=== PATIENT | female | born 1970 | race Hispanic/Latino ===

== ENCOUNTER 2019-01-06 11:55 | Inpatient (IN) | payer SELFPAY ==
[2019-01-06] MEDS ORDERED: Acetaminophen 500 MG TAB ONE (12:05)
[2019-01-06] MEDS ORDERED: Ondansetron ODT 4 MG TAB ONE (12:05)
[2019-01-06 12:41] LABS: Hemoglobin 12.6 g/dL (12.0-16.0); Mean Corpuscular HGB CONC 35.7 g/dL (32.0-36.0); Mean Corpuscular Hemoglobin 31.1 pg (27.0-31.0); Mean Corpuscular Volume 87.3 fL (78.0-98.0); Mean Platelet Volume 6.9 fL (7.4-10.4); Platelet Count 315 thou/uL (130-400); RBC Distribution Width 11.1 % (11.5-14.5); Red Blood Cell (RBC) Count 4.03 mill/uL (4.20-5.40); White Blood Cell (WBC) Count 17.4 thou/uL (4.8-10.8)
[2019-01-06 12:58] LABS: ALT (SGPT) 15 U/L (8-55); AST (SGOT) 14 U/L (5-34); Albumin 4.3 g/dL (3.5-5.0); Alkaline Phosphatase 96 U/L (40-150); Anion Gap 12 mmol/L (10-20); BUN (Urea Nitrogen) 16 mg/dL (7.0-18.7); Bilirubin, Total 3.2 mg/dL (0.2-1.2); Calc. Creatinine Clearance 0 mL/min (70-130); Calcium 9.4 mg/dL (7.8-10.44); Carbon Dioxide 26 mmol/L (22-29); Chloride 100 mmol/L (98-107); Estimated GFR-MDRD 75; Globulin 3.2 g/dL (2.4-3.5); Glucose 111 mg/dL (70-105); Lipase Less than 4 U/L (8-78); Potassium 3.9 mmol/L (3.5-5.1); Protein, Total 7.5 g/dL (6.0-8.3); Sodium 134 mmol/L (136-145)
[2019-01-06 13:16] LABS: Band 9 % (5-11); Lymphocytes 2 % (21-51); MDiff Complete? YES; Monocytes 6 % (0-10); Neutrophil 83 % (42-75); Platelet Morphology Comment Appears Adequate
[2019-01-06] MEDS ORDERED: cefTRIAXone\\ROCEPHIN 2 GM VIAL ONE (15:23)
[2019-01-06 15:54] LABS: Bilirubin Small (Negative); Blood, Urine Negative (Negative); Clarity CLOUDY (Clear); Glucose, Urine (Dipstick) Negative (Negative); Leukocyte Moderate (Negative); Nitrite Positive (Negative); Protein, Urine (Dipstick) 100 mg/dL (Neg-Trace); Specific Gravity, Urine 1.035 (1.002-1.036); pH, Urine 6.5 (5.0-9.0)
[2019-01-06 15:58] LABS: Bacteria/HPF Rare-Few HPF (None Seen); Pregnancy Test - Urine (BHCG) Negative (Negative); Pregu Control Background? CLEAR/WHITE (CLR/WHITE); Pregu Control Bar Appear? YES (CONTROL BAR); Specific Gravity 1.035 (1.002-1.036)
[2019-01-06 16:00] LABS: Pathc Cast-AUWi Flag 2.72 (0-2.49)
--- NOTE | 2019-01-06 16:04 | CT ---
EXAM: CT ABDOMEN AND PELVIS HISTORY: Pain upon urination. Suprapubic abdominal pain, starting yesterday. COMPARISON: 01/29/2017 Procedure: Multiple contiguous axial images were obtained and a CT of the abdomen and pelvis with IV contrast. C oronal reformats were performed. FINDINGS: Lower Chest: Bibasilar scar and atelectasis Vessels: Normal caliber aorta Heart: Normal heart size. No significant pericardial fluid. Abdomen: Portal vein:Patent Gallbladder: Extensive cholelithiasis without evidence of cholecystitis. Liver: within normal limits. Pancreas: within normal limits. Spleen: within normal limits. Adrenals: within normal limits. Kidneys: Symmetric enhancement. No obstructive uropathy. Subcentimeter hypodensity in the left renal cortex, too small to characterize but statistically favored to be cysts. Peritoneum: Stranding of the left lower quadrant mesentery without evidence of abscess. There does ap pear to be a contained perforation associated with a probable infected diverticulum involving proximal sigmoid colon. Bowel: Limited evaluation by technique. Stomach and duodenum are unremarkable. Ileocecal normal. Flui d-filled appendix, nonspecific. Extensive diverticulosis. There is mucosal thickening, bowel wall thickening and pericolonic fat stranding involving the distal descending colon and proximal colon. Th ere is a focus of extraluminal air, likely representing a contained diverticulum. There is evidence of diverticulitis, without evidence of abscess. Mesentery and Retroperitoneum: No enlarged mesenteric or retroperitoneal lymph nodes. Abdominal Wall: within normal limits. Pelvis: Reproductive Organs: Surgically absent uterus. Pelvis: Small amount of free fluid in the pelvis. Bladder: Decompressed, limiting evaluation. Bones: within normal limits. IMPRESSION: 1. Diverticulitis with associated containing a diverticulum. No evidence of abscess. Associated left hemicolon bowel wall thickening. Findings are presumed to be due to acute inflammation/infection. If there is concern for underlying mass, nonemergent colonoscopy can be performed. 2. Fluid-filled appendix. No definite CT evidence of acute appendicitis. Correlate clinically. 3. Extensive cholelithiasis without evidence of cholecystitis. 4. Results study discussed with Dr. Flores 01/06/2019 at 4:00 PM 5. Code CR
--- NOTE | 2019-01-06 16:07 | RAD ---
EXAM: CHEST ONE VIEW 01/06/19 HISTORY: Fever, abdominal pain and weakness. Heart size within normal limits. The lungs are clear. No confluent pneumonia, overt edema or pleural effusion. IMPRESSION: No acute intrathoracic disease. No evidence for pneumonia. POS: OFF
[2019-01-06 16:11] LABS: Hyaline Casts/LPF NONE SEEN LPF (0-3 Hyaline); Manual Microscopic Reviewed? No Path Casts Seen; RBC/HPF 0-3 HPF (0-3); Renal Epithelial None Seen HPF (0-3); Transitional Epithelial NONE SEEN HPF (0-3)
[2019-01-06] MEDS ORDERED: Ondansetron PF 4 MG/2 ML Vial IVP PRN (16:13)
[2019-01-06] MEDS ORDERED: Fentanyl 100 MCG/2 ML VIAL SLOW IVP PRN (16:13)
[2019-01-06] MEDS ORDERED: Fentanyl 100 MCG/2 ML VIAL ONE (16:32)
[2019-01-06] MEDS ORDERED: Ketorolac Tromethamine 30 MG/ML VIAL ONE (17:21)
[2019-01-06] MEDS ORDERED: Morphine 4 MG/ML VIAL SLOW IVP PRN (19:07)
[2019-01-06] MEDS ORDERED: Ondansetron HCl/PF 4 MG in Sodium Chloride 0.9% 50 ML IVPB PRN (19:07)
[2019-01-06] MEDS ORDERED: Morphine 2 MG/ML SYRINGE SLOW IVP PRN (19:17)
[2019-01-06] MEDS: Ketorolac Tromethamine 30 MG/ML VIAL IVP PRN (20:45)
[2019-01-06] MEDS: D5 1/2 NS w/20 mEq KCL 1,000 ML IV SCH (20:52)
[2019-01-06] MEDS: Sodium Chloride 0.9% 1,000 ML IV SCH (20:53)
[2019-01-06] MEDS: Meropenem 2 GM in Sodium Chloride 0.9% 100 ML IVPB SCH (20:53)
--- NOTE | 2019-01-07 00:17 | HP ---
CHIEF COMPLAINT: Left lower quadrant abdominal pain. HISTORY OF PRESENT ILLNESS: A 48-year-old female with a 2-day history of lower abdominal pain which became more left-sided over the last 24 hours, associated with nausea, vomiting, fever, last bowel movement yesterday. Denies rectal bleeding. She has never had any other bowel problems, but her father has a history of gastrointestinal cancer. PAST MEDICAL HISTORY: Breast cancer. PAST SURGICAL HISTORY: She had breast cancer surgery in 2006, hysterectomy in 2015. MEDICATIONS: Gas-X. ALLERGIES: NO KNOWN DRUG ALLERGIES. SOCIAL HISTORY: She is single. 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 No tobacco, social alcohol. FAMILY HISTORY: Cancer runs on her father's side. Hypertension, diabetes, and hyperlipidemia on her mother's side. PHYSICAL EXAMINATION: VITAL SIGNS: Temperature 101.5, pulse 95, blood pressure 143/80. GENERAL: She is an obese female, awake, alert, does not appear to be in any distress at this time. HEENT: Unremarkable. LUNGS: Clear. HEART: Regular rate and rhythm. ABDOMEN: Obese, very tender with local peritoneal signs in the left lower quadrant. I do not feel any hernia. She has some laparoscopy scars. LABORATORY DATA: White count is 17.4, H and H 12 and 35, platelet count 315. Electrolytes are fine. CT scan shows a perforated diverticulum with small area of microperforated air. No definite abscess cavity. No free perforation. She has multiple gallstones. ASSESSMENT: Diverticulitis with microperforation. PLAN: Admit, IV fluids, bowel rest, IV antibiotics. Job ID: [id number]
[2019-01-07] MEDS: Sodium Chloride 0.9% 1,000 ML IV SCH (01:11)
[2019-01-07] MEDS: D5 1/2 NS w/20 mEq KCL 1,000 ML IV SCH ×3 (04:57→20:40)
[2019-01-07] MEDS: Meropenem 2 GM in Sodium Chloride 0.9% 100 ML IVPB SCH ×3 (04:57→20:39)
[2019-01-07 05:21] LABS: #Lymphocytes 0.9 thou/uL (1.20-3.40); #Monocytes 0.9 thou/uL (0.11-0.59); #Neutrophils 10.8 thou/uL (1.40-6.50); %Basophils 0.1 % (0.0-1.0); %Eosinophils 0.3 % (0.0-10.0); %Monocytes 7.1 % (0.0-10.0); %Neutrophils 85.4 % (42.0-75.0); Hemoglobin 10.3 g/dL (12.0-16.0); Mean Corpuscular HGB CONC 34.2 g/dL (32.0-36.0); Mean Corpuscular Hemoglobin 30.6 pg (27.0-31.0); Mean Corpuscular Volume 89.6 fL (78.0-98.0); Mean Platelet Volume 7.1 fL (7.4-10.4); Platelet Count 244 thou/uL (130-400); RBC Distribution Width 11.3 % (11.5-14.5); Red Blood Cell (RBC) Count 3.38 mill/uL (4.20-5.40); White Blood Cell (WBC) Count 12.7 thou/uL (4.8-10.8)
[2019-01-07 05:29] LABS: Anion Gap 7 mmol/L (10-20); BUN (Urea Nitrogen) 15 mg/dL (7.0-18.7); Calc. Creatinine Clearance 92 mL/min (70-130); Calcium 8.7 mg/dL (7.8-10.44); Carbon Dioxide 26 mmol/L (22-29); Chloride 106 mmol/L (98-107); Estimated GFR-MDRD 77; Glucose 111 mg/dL (70-105); Sodium 135 mmol/L (136-145)
[2019-01-07] MEDS: Acetaminophen 1,000 MG in Premix Bag 1 BAG IVPB PRN ×2 (08:49→14:35)
[2019-01-07] MEDS: Ketorolac Tromethamine 30 MG/ML VIAL IVP PRN ×2 (08:49→14:35)
--- NOTE | 2019-01-07 09:32 | PRG ---
DATE OF SERVICE: 01/07/2019 SUBJECTIVE: The patient states that her pain is approximately 8/10, still primarily in the left lower quadrant, but fairly diffuse. She has had nausea. No vomiting. OBJECTIVE: VITAL SIGNS: Her temperature is 98.9, pulse 88, and blood pressure 119/77. GENERAL: She is awake and alert. She has passed flatus. ABDOMEN: Obese. She is fairly tender diffusely with peritoneal signs in left lower quadrant. LABORATORY DATA: Her white count is down from 17 to 12, hemoglobin and hematocrit of 10 and 30, and platelet count of 244. Electrolytes are fine. ASSESSMENT: Diverticulitis with microperforation, slightly improved. PLAN: Continue bowel rest and antibiotics. Job ID: [id number]
[2019-01-07] MEDS: Ondansetron PF 4 MG/2 ML Vial IVP PRN ×2 (14:34→18:48)
[2019-01-07] MEDS: Vancomycin HCl 1 GM in Premix Bag 1 BAG IVPB SCH (22:06)
[2019-01-08] MEDS: Ketorolac Tromethamine 30 MG/ML VIAL IVP PRN ×2 (04:16→21:50)
[2019-01-08] MEDS: D5 1/2 NS w/20 mEq KCL 1,000 ML IV SCH ×3 (04:18→20:01)
[2019-01-08] MEDS: Ondansetron PF 4 MG/2 ML Vial IVP PRN ×2 (04:24→12:46)
[2019-01-08] MEDS: Meropenem 2 GM in Sodium Chloride 0.9% 100 ML IVPB SCH ×3 (04:57→20:00)
[2019-01-08] MEDS: Vancomycin HCl 1 GM in Premix Bag 1 BAG IVPB SCH ×2 (09:18→21:45)
[2019-01-08] MEDS ORDERED: Acetaminophen 500 MG TAB PO PRN (15:40)
--- NOTE | 2019-01-08 16:01 | PRG ---
DATE OF SERVICE: 01/08/2019 SUBJECTIVE: Rachel Patton is doing well today. She denies having any pain, although she complains of nausea because of a headache because she has not eaten. She has passed flatus. OBJECTIVE: VITAL SIGNS: Temperature 98.9 degrees, pulse 78, blood pressure 138/88. LUNGS: Clear to auscultation. CARDIAC: Regular rate and rhythm without murmur or gallop. ABDOMEN: Soft. Minimal tenderness in left lower quadrant. No guarding or rebound. EXTREMITIES: Unremarkable. LABORATORY DATA: White count down from 17,000 to 12,000, hemoglobin 10. Basic metabolic profile, normal. ASSESSMENT AND PLAN: 1. Improved diverticulitis. Continue parental antibiotics. Introduce liquids, advance slowly. If she tolerates liquids later today, . 2. She had a coagulase-negative blood culture 08/04 and vancomycin was started. This is probably a contaminant. We will continue vancomycin in the hospital and probably discontinue that and send her home on Augmentin on discharge. She may be ready to go home on oral antibiotics tomorrow. Job ID: [id number]
[2019-01-08] MEDS: Amoxicillin/Potassium Clav 500 MG TAB PO SCH (20:00)
[2019-01-09] MEDS: Meropenem 2 GM in Sodium Chloride 0.9% 100 ML IVPB SCH ×3 (04:19→19:56)
[2019-01-09 04:50] LABS: #Eosinphils 0.2 thou/uL (0.0-0.7); #Lymphocytes 1.3 thou/uL (1.20-3.40); #Monocytes 0.7 thou/uL (0.11-0.59); #Neutrophils 4.3 thou/uL (1.40-6.50); %Basophils 0.6 % (0.0-1.0); %Eosinophils 2.9 % (0.0-10.0); %Lymphocytes 20.5 % (21.0-51.0); %Monocytes 10.7 % (0.0-10.0); %Neutrophils 65.4 % (42.0-75.0); Hemoglobin 10.6 g/dL (12.0-16.0); Mean Corpuscular HGB CONC 34.2 g/dL (32.0-36.0); Mean Corpuscular Hemoglobin 30.7 pg (27.0-31.0); Mean Corpuscular Volume 89.6 fL (78.0-98.0); Mean Platelet Volume 6.9 fL (7.4-10.4); Platelet Count 342 thou/uL (130-400); RBC Distribution Width 11.2 % (11.5-14.5); Red Blood Cell (RBC) Count 3.47 mill/uL (4.20-5.40); White Blood Cell (WBC) Count 6.6 thou/uL (4.8-10.8)
[2019-01-09] MEDS: D5 1/2 NS w/20 mEq KCL 1,000 ML IV SCH (05:25)
[2019-01-09 08:13] LABS: Vancomycin, Trough 11.2 ug/mL
[2019-01-09] MEDS: Amoxicillin/Potassium Clav 500 MG TAB PO SCH ×2 (08:43→20:00)
[2019-01-09] MEDS ORDERED: Vancomycin HCl 1.25 GM in Sodium Chloride 0.9% 250 ML 250 ML IVPB SCH (09:00)
[2019-01-09] MEDS ORDERED: traMADol HCl 50 MG TAB PO PRN ×2 (11:51)
--- NOTE | 2019-01-09 12:21 | PRG ---
DATE OF SERVICE: 01/09/2019 SUBJECTIVE: Rachel Patton is doing well today. She reports that she is just not hungry. She is not having nausea or vomiting. She has not had any fever. She is ambulating without difficulty. She is on both vancomycin IV and Augmentin. She has been treated for diverticulitis. She has had bowel movements and passed flatus. OBJECTIVE: LUNGS: Clear to auscultation. CARDIAC: Rhythm without murmur or gallop. ABDOMEN: Soft plus bowel sounds. Mild tenderness, left lower quadrant. Mild guarding. ASSESSMENT AND PLAN: She is doing well with her diverticulitis. She wants regular food, but as since she is still slightly tender, would advance her to full liquids, saline lock her. She is currently on meropenem and vancomycin, but I think the coagulase-negative Staph is a contaminant. We will stop the vancomycin. We will add Ultram to her pain medication. Job ID: [id number]
[2019-01-10] MEDS: Meropenem 2 GM in Sodium Chloride 0.9% 100 ML IVPB SCH ×2 (04:41→12:25)
--- NOTE | 2019-01-10 09:57 | PRG ---
DATE OF SERVICE: 01/10/2019 SUBJECTIVE: The patient is feeling much better. Denies pain. Tolerating full liquids. Having some loose stools and passing gas. OBJECTIVE: VITAL SIGNS: Temperature 98.8, pulse 66, and blood pressure 116/78. GENERAL: She looks good. ABDOMEN: Soft and nondistended. Very minimal tenderness. LABORATORY DATA: White count 6.6, H and H 10 and 31, and platelet count 342. ASSESSMENT: Improving diverticulitis. PLAN: Low residue diet. Consultation for Dietary. When the patient feels okay with that, we will discharge home on oral antibiotics. Job ID: [id number]
[2019-01-10] MEDS: Amoxicillin/Potassium Clav 500 MG TAB PO SCH (10:28)
[2019-01-10 11:46] VITALS: BMI 27.7
[2019-01-10 12:10] VITALS: BP 123/78; TEMP 99.1
--- NOTE | 2019-01-10 16:22 | DIS ---
DATE OF ADMISSION: 01/06/2019 DATE OF DISCHARGE: 01/10/2019 DISCHARGE DIAGNOSIS: Acute diverticulitis with microperforation. PROCEDURES DURING ADMISSION: CT scan of abdomen and pelvis, IV antibiotics. HOSPITAL COURSE: The patient was admitted. CT showed microperforation. She was started on IV antibiotics. The pain slowly improved. She is now free of pain. Her bowels are functioning well. She is tolerating a low-residue diet. She will stay on a low-residue diet for a month. She will remain on Levaquin 500 daily and Flagyl 500 t.i.d. for 10 days. She will follow up with me in 2 weeks. Job ID: [id number]
== END 2019-01-10 16:41 | disposition home or self-care (01) | DRG 392 ==
LOC: ERS 11:55 → SURG A 17:04
PROVIDERS: ADMIT Surgery; ATTEND Surgery
DX: K57.20 Diverticulitis of large intestine with perforation and abscess without bleeding (principal); E66.9 Obesity, unspecified; Z68.27 Body mass index [BMI] 27.0-27.9, adult; Z85.3 Personal history of malignant neoplasm of breast; Z90.10 Acquired absence of unspecified breast and nipple; Z90.710 Acquired absence of both cervix and uterus
CPT/HCPCS: 36415; 71045; 74177; 80048; 80053; 80202; 81003; 81015; 81025; 83690; 85025; 87040; 87086; 87149; 96361; 96365; 96375; J0131; J0696; J1885; J2185; J2405; J3010; J3370; J3490; J7050; Q0162